=== PATIENT | female | born 1990 | race American Indian/Alaskan Native ===

== ENCOUNTER 2018-09-22 07:18 | Emergency (ER) | payer SELFPAY ==
[2018-09-22 07:30] VITALS: BP 112/72
--- NOTE | 2018-09-22 08:54 | Emergency Department Report ---
Chief Complaint: Medical Clearance Stated Complaint: CONTACT WITH BLOOD/CHECK UP Time Seen by Provider: 09/22/18 08:38 - HPI History of Present Illness: Patient is a 28-year-old female who was in a public bathroom leaches came in contact with some dry blood on the toilet paper. Patient states she wiped and noted that there was some maroon colored stains on the toilet paper. Patient states she wiped with this. She has no open wounds. Patient is worried about acquiring STD. - ROS Review of Systems: All other systems are reviewed and are negative - Exam Vital Signs: Vital Signs 09/22/18 07:28 Temperature 98.3 F Pulse Rate 77 Respiratory 16 Rate Blood Pressure 112/72 [Left] O2 Sat by Pulse 98 Oximetry Physical Exam: Patient is alert and oriented 3 in no acute distress. MSE screening note: Focused history and physical exam performed. Due to findings the following was ordered: ED Medical Decision Making - Medical Decision Making Patient with the contact with possible blood. Patient states this was a maroon stain on the edge of the toilet paper. It is unknown whether this was actually blood. Patient even if she did come in contact with dry blood is in no increased risk of disease transmission. Patient referred to the health department if she needs further care. Patient is a now medical emergency at this time. ED Disposition for MSE Clinical Impression: Exposure to blood or body fluid Disposition: MED SCREENING EXAM-LEFT Condition: Stable Additional Instructions: Dried blood is not infectious. In addition, as long as your skin is intact in the area you are touching the dried blood, there is no risk. The danger would be if the blood was not dried and your skin was not intact. For instance, if you had an open sore and came in contact with hiv-infected blood (not dried), this would be higher risk. If you worried about hepatitis exposure please see the health Department for hepatitis vaccines Referrals: ASIA ATSORGA MD [Primary Care Provider] - 3-5 Days Time of Disposition: 08:53
== END 2018-09-22 09:19 | disposition left against medical advice (07) ==
LOC: ED 07:18
DX: Z77.21 Contact with and (suspected) exposure to potentially hazardous body fluids (principal)
CPT/HCPCS: 99282